=== PATIENT | male | born 1975 | race African-American/Black ===

== ENCOUNTER 2020-10-10 21:41 | Emergency (ER) | payer BC, OTHER ==
[~2020-10-10] VITALS: Ht 180.3 cm; Wt 95.3 kg
[2020-10-10] MEDS ORDERED: ADVIL200 M3 PO (21:48)
[2020-10-10 22:50] LABS: ABSOLUTE NEUTROPHILS 6.3 thou/uL (1.4-8.2); BASOPHILS 0.7 % (0.0-2.0); HEMATOCRIT 43.5 % (42.0-52.0); HEMOGLOBIN 14.1 gm/dL (14.0-18.0); LYMPHOCYTES 20.7 % (24.0-44.0); MCH 28.6 pg (26.0-34.0); MCHC 32.4 g/dL (28.0-37.0); MCV 88.3 fL (80.0-100.0); MONOCYTES 8.2 % (1.0-8.0); PLATELET COUNT 275 thou/uL (150-400); POLYS 69.4 % (36.0-66.0); RBC 4.92 mil/uL (4.50-6.00); RDW 13.4 % (10.5-14.5); WBC 9.1 thou/uL (4.0-11.0)
[2020-10-10 23:02] LABS: ANION GAP 12 mmol/L (7-16); BUN 17 mg/dL (7-18); CALCIUM 8.9 mg/dL (8.5-10.1); CHLORIDE 105 mmol/L (98-107); CO2 22 mmol/L (21-32); CREATININE 1.3 mg/dL (0.7-1.3); GLUCOSE 97 mg/dL (74-106); POTASSIUM 4.3 mmol/L (3.5-5.1); SODIUM 139 mmol/L (136-145)
[2020-10-10 23:20] LABS: ALBUMIN 4.1 g/dL (3.4-5.0); AMYLASE 70 U/L (25-115); DIRECT BILIRUBIN 0.1 mg/dL (<0.1-0.2); LIPASE 232 U/L (73-393); MAGNESIUM 1.9 mg/dL (1.8-2.4); SGOT 55 U/L (15-37); SGPT 45 U/L (30-65); TOTAL BILIRUBIN 0.6 mg/dL (0.2-1.0); TOTAL PROTEIN 7.7 g/dL (6.4-8.2); TROPONIN-I <0.06 ng/mL (<0.06)
[2020-10-11 00:25] LABS: URINE BILIRUBIN NEGATIVE (Negative); URINE BLOOD NEGATIVE (Negative); URINE CLARITY CLEAR; URINE COLOR YELLOW; URINE GLUCOSE-RANDOM* NEGATIVE (Negative); URINE KETONES NEGATIVE (Negative); URINE LEUKOCYTES-REFLEX NEGATIVE (Negative); URINE NITRITE-REFLEX NEGATIVE (Negative); URINE PROTEIN (DIPSTICK) NEGATIVE (Negative); URINE SPECIFIC GRAVITY >= 1.030 (1.005-1.035); URINE UROBILINOGEN 0.2 E.U./dl (0.2-1.0)
[2020-10-11 00:47] VITALS: BP 141/102
--- NOTE | 2020-10-11 07:14 | EKG ---
[address] [place] [address] ELECTROCARDIOGRAM REPORT Name: RADHA MEADE Room #: [facility]#: [id number] Admission: 10/10/20 Attend Phys: Discharge: 10/11/20 Date of : 71 Report #: [id number] [facility] ED Test Date: 2020-10-10 Test Time: 22:21:25 Pat Name: RADHA MEADE Department: Room: Gender: Line Cook: mecca : 1975 Requested By: Tariq Davenport Order Number: [id number] MD: Slava Hartman Measurements Intervals [place] Rate: 66 P: 52 MD: 180 QRS: 75 QRSD: 86 T: 38 QT: 379 QTc: 398 Interpretive Statements Sinus rhythm ST elev, probable normal early repol pattern No previous ECG available for comparison Electronically Signed On 10-11-2020 7:14:16 CDT by Slava Hartman [email or web address] <ELECTRONICALLY SIGNED> By: Slava Hartman MD, [facility] 10/11/20 0714 20 2221 Slava Hartman MD, FACC /EPI
== END 2020-10-11 00:48 | disposition home or self-care (01) ==
LOC: ER 21:41
PROVIDERS: Emergency Medicine
DX: T67.2XXA Heat cramp, initial encounter (principal); M62.82 Rhabdomyolysis; E78.00 Pure hypercholesterolemia, unspecified; M19.90 Unspecified osteoarthritis, unspecified site; X58.XXXA Exposure to other specified factors, initial encounter; Y93.89 Activity, other specified; Y92.89 Other specified places as the place of occurrence of the external cause; Y99.8 Other external cause status

== ENCOUNTER → 2021-02-21 | Emergency (ER) | payer BC, OTHER ==
[~2021-02-21] VITALS: Ht 180.3 cm; Wt 81.7 kg
[~2021-02-21] MED LIST: ADVIL200 M3 PO; FLEXERIL PO; NORCO5 PO
[2021-02-21 14:47] VITALS: BP 139/87
== END ==
LOC: ER 14:39
DX: M54.16 Radiculopathy, lumbar region (principal); M54.42 Lumbago with sciatica, left side; E78.00 Pure hypercholesterolemia, unspecified; M19.90 Unspecified osteoarthritis, unspecified site; Z79.899 Other long term (current) drug therapy